=== PATIENT | male | born 1985 | race Hispanic/Latino ===

== ENCOUNTER 2017-01-11 20:37 | Emergency (ER) | payer MEDICAID ==
[2017-01-11 20:54] VITALS: BP 134/73; PULSE 81; RESP 16; TEMP 98; O2SAT 99
--- NOTE | 2017-01-11 21:52 | ED PDOC ---
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 Patient attempted to use hydrocortisone cream and Benadryl, but did not experience any relief in his itching. He denies any fevers or chills. Past Medical History Reviewed: Historical Data, Nursing Documentation, Vital Signs Vital Signs: Last Vital Signs Temp 98.0 F 01/11/17 20:51 Pulse 81 01/11/17 20:51 Resp 16 01/11/17 20:51 BP 134/73 01/11/17 20:51 Pulse Ox 99 01/11/17 21:54 - Medical History PMH: No Chronic Diseases - Family History Family History: States: Unknown Family Hx - Home Medications Home Medications: Ambulatory Orders Medication Instructions Recorded hydrOXYzine Pamoate [Vistaril] 50 mg PO Q6 PRN #24 cap 01/11/17 predniSONE [predniSONE Tab] 3 tab PO DAILY #12 tab 01/11/17 - Allergies Allergies/Adverse Reactions: Allergies Allergy/AdvReac Type Severity Reaction Status Date / Time No Known Allergies Allergy Verified 01/11/17 20:50 Review of Systems Constitutional: Negative for: Fever, Chills Skin: Positive for: Rash (noted b/l arms, behind ears, and on right groin) Physical Exam - Reviewed Nursing Documentation Reviewed: Yes Vital Signs Reviewed: Yes - Physical Exam Appears: Positive for: Non-toxic, No Acute Distress Head Exam: Positive for: ATRAUMATIC, NORMOCEPHALIC Skin: Positive for: Warm, Rash (Multiple papular lesions and vesicles noted along b/l forearms and by wrists in a linear array. Similar distribution noted to right groin, no lesions noted behind ears. ). Negative for: Normal Color Cardiovascular/Chest: Positive for: Regular Rate, Rhythm. Negative for: Murmur Respiratory: Positive for: Normal Breath Sounds. Negative for: Wheezing Extremity: Positive for: Normal ROM Neurologic/Psych: Positive for: Alert, Oriented. Negative for: Motor/Sensory Deficits - ECG O2 Sat by Pulse Oximetry: 99 (RA) Pulse Ox Interpretation: Normal Medical Decision Making Medical Decision Making: Impression: Poison Svitlana Plan: * Prednisone 60 mg PO * Reevaluation Scribe Attestation: Documented by Alejandra Calvin, acting as a scribe for Mayank Jones PA-C. Provider Scribe Attestation: All medical record entries made by the Scribe were at my direction and personally dictated by me. I have reviewed the chart and agree that the record accurately reflects my personal performance of the history, physical exam, medical decision making, and the department course for this patient. I have also personally directed, reviewed, and agree with the discharge instructions and disposition. Disposition - Clinical Impression Clinical Impression: Poison svitlana dermatitis - Patient ED Disposition Is Patient to be Admitted: No - Disposition Referrals: [facility] [Outside] Disposition: Routine/Home Disposition Time: 22:21 Condition: FAIR Prescriptions: hydrOXYzine Pamoate [Vistaril] 50 mg PO Q6 PRN #24 cap PRN Reason: Itching / Pruritus predniSONE [predniSONE Tab] 3 tab PO DAILY #12 tab Instructions: Poison Svitlana (ED) Forms: [employer] (Filipino), [facility] ED School/Work Excuse
== END 2017-01-11 23:04 | disposition home or self-care (01) ==
LOC: H.ER 20:37
DX: L23.7 Allergic contact dermatitis due to plants, except food (principal)